=== PATIENT | female | born 1980 | race Caucasian/White ===

== ENCOUNTER 2018-08-14 10:14 | Emergency (ER) | payer BC, MEDICAID ==
[2018-08-14 10:15] VITALS: BMI 38.2
[2018-08-14 11:20] VITALS: O2SAT 100
[2018-08-14] MEDS ORDERED: Iohexol 240 (50 ml) PO ONE (11:57)
[2018-08-14] MEDS ORDERED: Iohexol 240 (50 ml) ONE (12:03)
[2018-08-14 12:30] LABS: BASO % 0.5 % (0.0-2.0); EOS # 0.1 K/uL (0.0-0.7); EOS % 0.8 % (0.0-4.0); HEMOGLOBIN 13.2 g/dL (12.0-16.0); LYMPH # 2.2 K/uL (1.0-4.3); LYMPH % 27.9 % (20.0-40.0); MEAN CORPUSCULAR HEMOGLOBIN 29.5 pg (27.0-31.0); MEAN CORPUSCULAR HGB CONC 33.6 g/dL (33.0-37.0); MEAN PLATELET VOLUME 8.3 fl (7.2-11.7); MONO # 0.5 K/uL (0.0-0.8); MONO % 6.4 % (0.0-10.0); NEUT # 5.2 K/uL (1.8-7.0); NEUT % 64.4 % (50.0-75.0); NRBC % 0.1 % (0.0-0.0); RBC 4.48 Mil/uL (3.80-5.20); RED CELL DISTRIBUTION WIDTH 13.5 % (11.5-14.5)
[2018-08-14 12:31] LABS: PROTHROMBIN TIME 11.2 Seconds (9.8-13.1)
[2018-08-14 12:33] LABS: ALB/GLOB RATIO 1.3 (1.0-2.1); ALBUMIN 4.6 g/dL (3.5-5.0); ALT/SGPT 38 U/L (9-52); AST/SGOT 26 U/L (14-36); BLOOD UREA NITROGEN 8 mg/dl (7-17); CALCIUM 9.4 mg/dL (8.4-10.2); GFR NON-AFRICAN AMERICAN > 60; LIPASE 91 U/L (23-300)
[2018-08-14 12:34] LABS: PARTIAL THROMBOPLASTIN TIME 33.8 Seconds (25.6-37.1)
--- NOTE | 2018-08-14 12:38 | ED PDOC ---
HPI: Abdomen Time Seen by Provider: 08/14/18 10:59 Chief Complaint (Nursing): GI Problem History Per: Patient Additional Complaint(s): Pt. states for the past month she's had constipation (1 BM per week). Reports BM's have been bloody (bright red) and mucoid like stools that occurs when she wipes. 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 She made an appointment to see him which was cancelled twice. Of note, pt. states she takes Naproxen multiple times a day for her chronic back pain. Denies hx of GI bleed, melena, fever, chills, weakness, hx of anemia. Past Medical History Reviewed: Historical Data, Nursing Documentation, Vital Signs Vital Signs: Last Vital Signs Temp 98.2 F 08/14/18 11:20 Pulse 76 08/14/18 11:20 Resp 17 08/14/18 11:20 BP 129/88 08/14/18 11:20 Pulse Ox 100 08/14/18 11:20 - Surgical History Surgical History: (x2) - Family History Family History: States: No Known Family Hx - Home Medications Home Medications: Ambulatory Orders Medication Instructions Recorded Docusate Sodium [Colace] 100 mg PO BID PRN #10 capsule 08/14/18 Polyethylene Glycol 3350 [Miralax] 17 gm PO DAILY PRN #30 powd.pack 08/14/18 - Allergies Allergies/Adverse Reactions: Allergies Allergy/AdvReac Type Severity Reaction Status Date / Time No Known Allergies Allergy Verified 08/14/18 11:14 Review of Systems ROS Statement: Except As Marked, All Systems Reviewed And Found Negative Gastrointestinal: Positive for: Hematochezia Physical Exam - Physical Exam Appears: Positive for: Well, Non-toxic, No Acute Distress Skin: Positive for: Normal Color, Warm. Negative for: Rash Eye Exam: Positive for: Normal appearance Gastrointestinal/Abdominal: Positive for: Normal Exam, Bowel Sounds, Soft. Negative for: Tenderness, Distended Rectal: Positive for: Rectal Tone Is: (intact), Stool Is Heme: (positive), Other (bright red blood noted). Negative for: Black Stool, Blood Streaked Stool, Hemorrhoids, Mass Neurological/Psych: Positive for: Awake, Alert - Laboratory Results Result Diagrams: 08/14/18 12:10 08/14/18 12:10 - ECG O2 Sat by Pulse Oximetry: 100 - Progress ED Course And Treament: Of note, pt. was sent from [facility] to come to ED for CT. Labs, CT abd/pelvis, protonix IV ordered. CT abd/pelvis: No acute abdominal or pelvic abnormality. Constipation. No evidence for bowel obstruction. Medical Decision Making Medical Decision Makin:[address] Hartley, covering for Dr. Brown, who agrees with plan of care. He requests patient be given medications for constipation and follow up in his office. Scribe Attestation: Documented by Jesus Hayes acting as a scribe for Tyron LOGAN. Provider Scribe Attestation: All medical record entries made by the Scribe were at my direction and personally dictated by me. I have reviewed the chart and agree that the record accurately reflects my personal performance of the history, physical exam, medical decision making, and the department course for this patient. I have also personally directed, reviewed, and agree with the discharge instructions and disposition. Disposition - Clinical Impression Clinical Impression: Constipation - Patient ED Disposition Is Patient to be Admitted: No - Disposition Referrals: Mio Hartley MD, PhD [Staff Provider] - Estevan Brown [Staff Provider] - [facility] [Outside] Disposition: Routine/Home Disposition Time: 15:39 Condition: STABLE Additional Instructions: FOLLOW UP WITH YOUR ASSISTANT PAR[place]GAL ON SATURDAY YOU HAD PREVIOUSLY SCHEDULED WITHOUT FAIL RETURN TO ED IMMEDIATELY IF SYMPTOMS WORSEN KEVIN THOMAS, thank you for letting us take care of you today. Your provider was Carmine Bean MD and you were treated for CONSTIPATION. The emergency medical care you received today was directed at your acute symptoms. If you were prescribed any medication, please fill it and take as directed. It may take several days for your symptoms to resolve. Return to the Emergency Department if your symptoms worsen, do not improve, or if you have any other problems. Please contact your doctor or call one of the physicians/clinics you have been referred to that are listed on the Patient Visit Information form that is included in your discharge packet. Bring any paperwork you were given at discharge with you along with any medications you are taking to your follow up visit. Our treatment cannot replace ongoing medical care by a primary care provider outside of the emergency department. Thank you for allowing the [facility] team to be part of your care today. If you had an X-Ray or CT scan: A Radiologist will review the ED reading if any change in treatment is needed we will contact you. If you had a blood, urine, or wound culture: It will take several days for the results, if any change in treatment is needed we will contact you. If you had an STI test: It will take 48 hours for the results. Please call after 1 week if you have not heard back. Prescriptions: Docusate Sodium [Colace] 100 mg PO BID PRN #10 capsule PRN Reason: Constipation Polyethylene Glycol 3350 [Miralax] 17 gm PO DAILY PRN #30 powd.pack PRN Reason: abdominal pain Instructions: Constipation, Adult (DC) Forms: [employer] (Hungarian) Print Language: K[place]WA[place]ILI
[2018-08-14] MEDS ORDERED: Iohexol 300 100 ML IJ ONE (13:31)
[2018-08-14] MEDS ORDERED: Sodium Chloride 0.9% 50 ML IV ONE (13:31)
--- NOTE | 2018-08-14 14:55 | CT ---
Date of service: 08/14/2018 PROCEDURE: CT Abdomen and Pelvis with contrast HISTORY: constipation, hx of proctitis COMPARISON: None available. TECHNIQUE: CT scan of the abdomen and pelvis was performed after administration of intravenous contrast. Oral contrast was administered. Coronal and sagittal reformatted images were obtained. Contrast dos: 95 cc Omnipaque 300 Radiation dose: Total exam DLP = 479.85 mGy-cm. This CT exam was performed using one or more of the following dose reduction techniques: Automated exposure control, adjustment of the mA and/or kV according to patient size, and/or use of iterative reconstruction technique. FINDINGS: LOWER THORAX: The visualized lungs are clear. LIVER: Normal in size with homogeneous enhancement. A tiny low-attenuation lesion in the hepatic dome is too small to characterize by CT criteria. No gross lesion or ductal dilatation. GALLBLADDER AND BILE DUCTS: Well distended. No calcified gallstones, wall thickening or pericholecystic fluid. PANCREAS: Normal in size with homogeneous enhancement. No gross lesion or ductal dilatation. SPLEEN: Normal in size and appearance. ADRENALS: No discrete nodule. KIDNEYS AND URETERS: Normal in size with homogeneous enhancement. No hydronephrosis. No solid mass. VASCULATURE: No aortic aneurysm. There are no aortic atherosclerotic calcifications or mural plaque present. BOWEL: The small bowel loops are normal in caliber. There is large amount of stool in the colon. No bowel dilatation or wall thickening. APPENDIX: Normal appendix. PERITONEUM: No free fluid. No free air. LYMPH NODES: No enlarged lymph nodes. BLADDER: Well distended and normal in appearance. REPRODUCTIVE: Retroverted and bulky. BONES: No acute fracture. Within normal limits for the patient's age. OTHER FINDINGS: None. IMPRESSION: No acute abdominal or pelvic abnormality. Constipation. No evidence for bowel obstruction.
[2018-08-14 16:16] VITALS: BP 104/59; PULSE 101; RESP 16; TEMP 99.1
== END 2018-08-14 16:10 | disposition home or self-care (01) ==
LOC: H.ER 10:14
DX: K59.00 Constipation, unspecified (principal)
CPT/HCPCS: 74177; 80053; 81025; 83690; 85025; 85610; 85730; 86850; 86900; 96374; 96375; 99284; C9113; G0328; J2405; Q9966; Q9967

== ENCOUNTER 2018-08-21 11:04 | Emergency (ER) | payer MEDICAID ==
[2018-08-21 11:06] VITALS: BMI 27.7
[2018-08-21 11:08] VITALS: RESP 18; TEMP 97.8; O2SAT 99
--- NOTE | 2018-08-21 12:29 | ED PDOC ---
HPI: Psych/Substance Abuse Time Seen by Provider: 08/21/18 11:31 Chief Complaint (Nursing): Anxiety Chief Complaint (Provider): Anxiety History Per: Patient History/Exam Limitations: no limitations Onset/Duration Of Symptoms: Days Current Symptoms Are (Timing): Still Present Additional Complaint(s): 37 y/o female with a PMHx of Anxiety presents to the ED for evaluation of an anxiety/panic attack. Patient states its been worsening throughout the day. Patient notes that while walking to work she began feeling palpitations and took half a Xanax with no relief of symptoms. Of note, patient reports of having an appointment with her psychiatrist tomorrow. Otherwise, patient denies chest pain and shortness of breath. PMD: Jessika Sims Past Medical History Reviewed: Historical Data, Nursing Documentation, Vital Signs Vital Signs: Last Vital Signs Temp 97.8 F 08/21/18 11:07 Pulse 98 H 08/21/18 11:07 Resp 18 08/21/18 11:07 BP 112/75 08/21/18 11:07 Pulse Ox 99 08/21/18 11:07 - Medical History PMH: Anxiety - Surgical History Surgical History: (x2) - Family History Family History: States: Unknown Family Hx - Home Medications Home Medications: Ambulatory Orders Medication Instructions Recorded Docusate Sodium [Colace] 100 mg PO BID PRN #10 capsule 08/14/18 Polyethylene Glycol 3350 [Miralax] 17 gm PO DAILY PRN #30 powd.pack 08/14/18 - Allergies Allergies/Adverse Reactions: Allergies Allergy/AdvReac Type Severity Reaction Status Date / Time No Known Allergies Allergy Verified 08/21/18 11:24 Review of Systems ROS Statement: Except As Marked, All Systems Reviewed And Found Negative Psych: Positive for: Anxiety Physical Exam - Reviewed Nursing Documentation Reviewed: Yes Vital Signs Reviewed: Yes - Physical Exam Appears: Positive for: No Acute Distress Head Exam: Positive for: ATRAUMATIC, NORMOCEPHALIC Skin: Positive for: Normal Color, Warm, Dry Eye Exam: Positive for: Normal appearance, EOMI, PERRL Neck: Positive for: Normal, Painless ROM Cardiovascular/Chest: Positive for: Regular Rate, Rhythm. Negative for: Murmur Respiratory: Positive for: Normal Breath Sounds. Negative for: Respiratory Distress Gastrointestinal/Abdominal: Positive for: Normal Exam, Soft. Negative for: Tenderness Back: Positive for: Normal Inspection. Negative for: L CVA Tenderness, R CVA Tenderness, Vertebral Tenderness Extremity: Positive for: Normal ROM. Negative for: Deformity Neurological/Psych: Positive for: Awake, Alert, Oriented (x3), Mood/Affect (Anxious mood) - ECG O2 Sat by Pulse Oximetry: 99 (RA) Pulse Ox Interpretation: Normal Medical Decision Making Medical Decision Making: Time: 1223 A/P: Patient presenting with a panic attack -- Will give additional Xanax in the ED -- Most likely discharge home if symptoms resolve -- Xanax 0.25 mg PO ___ Scribe Attestation: Documented by Ravi Scott, acting as a scribe for Quin Cates MD. Provider Scribe Attestation: All medical record entries made by the Scribe were at my direction and personally dictated by me. I have reviewed the chart and agree that the record accurately reflects my personal performance of the history, physical exam, medical decision making, and the department course for this patient. I have also personally directed, reviewed, and agree with the discharge instructions and disposition. Disposition - Clinical Impression Clinical Impression: Anxiety - Disposition Disposition: Left W/O Treatment Disposition Time: 12:45 Condition: STABLE Forms: [employer] (Azeri)
[2018-08-21 14:24] VITALS: BP 110/72; PULSE 90
== END 2018-08-21 12:30 | disposition left against medical advice (07) ==
LOC: H.ER 11:04
DX: F41.0 Panic disorder [episodic paroxysmal anxiety] (principal)